=== PATIENT | male | born 1945 | race Asian ===

== ENCOUNTER → 2018-05-05 | Outpatient (CLI) | payer BC | END | disposition home or self-care (01) | LOC: RADPV 12:57 | PROVIDERS: ATTEND Internal Medicine | DX: R05 Cough (principal) ==

== ENCOUNTER → 2019-04-27 | Outpatient (CLI) | payer BC | END | disposition home or self-care (01) | LOC: RADPV 13:08 | PROVIDERS: ATTEND Internal Medicine | DX: J90 Pleural effusion, not elsewhere classified (principal) ==